=== PATIENT | female | born 1955 | race Caucasian/White ===

== ENCOUNTER 2023-09-18 11:11 | Day surgery (SDC) | payer OTHER ==
[2023-09-16 15:50] LABS: Absolute Lymphocytes (CBC) 2.2 K/uL (0.7-4.9); Hematocrit 39.2 % (36.0-45.0); Lymphocytes % 27.7 % (15.3-44.8); MCV 89.4 fL (80-100); MPV 7.7 fL (7.6-11.3); Platelets 250 thou/uL (152-406); RBC Red Blood Cell Count 4.38 M/uL (3.86-4.86)
[2023-09-16 16:05] LABS: ALT/SGPT 43 U/L (13-56); AST/SGOT 19 U/L (15-37); Albumin 3.8 g/dL (3.4-5.0); Alkaline Phosphatase 90 U/L (45-117); BUN Blood Urea Nitrogen 12 mg/dL (7-18); Bicarbonate 26 mEq/L (21-32); Bilirubin Total 0.3 mg/dL (0.2-1.0); Glomerular Filtration Rate 57 ml/min (=/>90); Glucose Level 283 mg/dL (74-106); Lipase 170 U/L (13-75); Protein, Total 7.5 g/dL (6.4-8.2); Sodium Level 135 mEq/L (136-145)
[2023-09-16 16:06] LABS: Bilirubin Direct < 0.1 mg/dL (0-0.2); Bilirubin Indirect, Calculated ND mg/dL (0.2-0.8)
--- NOTE | 2023-09-16 19:39 | RAD REPORT ---
EXAM DESCRIPTION: RAD - Chest Pa And Lat (2 Views) - 09/16/2023 3:36 pm CLINICAL HISTORY: Pre op pending cholecystectomy. Hypertension COMPARISON: CHEST PA AND LAT 2 VIEW dated 10/20/2013 TECHNIQUE: PA and lateral views of the chest were obtained. FINDINGS: The lungs are clear. Heart size is normal and central vasculature is within normal limits. No pleural effusion or pneumothorax seen. No acute bony finding noted. IMPRESSION: No acute cardiopulmonary process.
--- NOTE | 2023-09-17 13:38 | EKG ---
Test Date: 2023-09-16 Test Time: 15:16:00 Ceramics Teacher: KATHIA MEASUREMENT RESULTS: Intervals: Rate: 79 VT: 168 QRSD: 86 QT: 358 QTc: 410 [place]: P: 51 VT: 168 QRS: 28 T: 121 INTERPRETIVE STATEMENTS: Normal sinus rhythm Nonspecific T wave abnormality Abnormal ECG Compared to ECG 10/20/2013 10:39:54 Sinus bradycardia no longer present Possible ischemia no longer present Left ventricular hypertrophy no longer present T-wave abnormality still present Electronically Signed On 09-17-23 13:36:48 CDT by Valente Pham
[2023-09-18] MEDS ORDERED: LIDOCAINE 2% MPF 5 ML VIAL ONE (11:31)
[2023-09-18] MEDS ORDERED: FENTANYL CITR 100 MCG/2 ML ONE ×2 (11:31→13:46)
[2023-09-18] MEDS ORDERED: ROCURONIUM 50 MG/5 ML VIAL IV ONE (11:31)
[2023-09-18] MEDS ORDERED: propofoL 200 MG/20 ML VIAL IV ONE (11:31)
[2023-09-18] MEDS ORDERED: ONDANSETRON 4 MG/2 ML VIAL ONE (11:31)
[2023-09-18] MEDS ORDERED: NA CHLORIDE 0.9% 1,000 ML ONE (11:42)
[2023-09-18] MEDS ORDERED: CEFOXITIN SODIUM 1 GM/VIAL ONE (11:56)
[2023-09-18] MEDS ORDERED: GLYCOPYRROLATE 0.2 MG/ML SYR ONE (13:56)
--- NOTE | 2023-09-18 14:01 | P.BOP ---
Preoperative diagnosis: acute cholecystitis, symptomatic cholelithiasis, pancreatitis Postoperative diagnosis: same Primary procedure: Laparoscopic cholecystectomy Estimated blood loss: <10cc Specimen: gb Findings: as above Anesthesia: General Complications: None Transferred to: Recovery Room Condition: Good
[2023-09-18] MEDS ORDERED: NEOSTIGMINE 1 MG/ML -10 ML VIAL ONE (14:04)
[2023-09-18] MEDS ORDERED: PROMETHAZINE INJ 25 MG/ML AMP ONE (14:40)
[2023-09-18 15:15] VITALS: BP 153/67; TEMP 96.9; O2SAT 94
--- NOTE | 2023-09-18 22:06 | OP ---
Surgeon: Cl Huerta MD Preoperative Diagnoses: Acute cholecystitis, symptomatic cholelithiasis, pancreatitis. Postoperative Diagnoses: Acute cholecystitis, symptomatic cholelithiasis, pancreatitis. Procedure: Laparoscopic cholecystectomy. Estimated Blood Loss: Less than 10 mL. Specimen: Gallbladder. Anesthesia: General plus local. Complications: None. Indication: The patient comes to us with above diagnoses. Fully explained the benefits, alternative s, and risks of laparoscopic possible open cholecystectomy, which include, but not limited to infecti on, bleeding, damage to adjacent structures, anesthesia complication, choledocholithiasis, bile leak, pancreatitis. She also understands this may not relieve the symptoms. She might need more than one surgical intervention. She understood, signed a consent. She was also advised to follow up with he r pulmonologist. She initially went there for pancreatitis. Description Of Procedure: The patient brought to the operating room, placed in supine position. Ane sthesia was achieved without complication. Abdominal area was prepped and draped in sterile fashion. Marcaine 0.5% injection for local anesthetic followed by sharp incision of the skin in the supraumb ilical region. The incision was carried down to fascia, which was opened under direct vision. Perit oneum was encountered, opened under direct vision. Vicryl #1 placed inside the fascia. Bryan troca r was carefully introduced. Pneumoperitoneum was obtained. I placed 3 more trocars, 5 mm each one o f them, 1 in epigastric area, 2 in the right upper quadrant, using the same technique which consisted of local anesthetic, sharp incision of the skin, and introduction of the trocars under direct vision . This allowed me to put a grasper in the fundus of the gallbladder, another grasper in the infundib ulum, retracting the gallbladder in the inferolateral fashion, exposing the triangle of Calot, and ob taining critical view. The cystic duct and cystic artery were clearly isolated, freed circumferentia lly and a connection between those and the gallbladder was clearly identified. I proceeded to ligate those by using at least 3 clips proximal, 1 clip distal, ligation in the middle. Same was done with the cystic artery. No bile leak, no bleeding. The gallbladder was removed from liver using Bovie c auterizer and removed from abdominal cavity using EndoCatch through an umbilical incision. The area was inspected once again. No bile leak. No bleeding. At that moment, I proceeded to remove the tro cars under direct vision, deflated pneumoperitoneum, closed the fascia with #1 Vicryl, irrigated subc utaneous tissue, closed that with 3-0 chromic and skin with casey. Sponge count, instrument counts correct. The patient tolerated the procedure well. The patient sent to recovery in stable conditio n. Diagnoses: Acute cholecystitis, symptomatic cholelithiasis, pancreatitis Procedure: Laparoscopic cholecystectomy. Disposition: Home. Activity: As tolerated, no heavy lifting. Follow up in my office in 1 week, call for appointment [phone]. Keep area dry for 48 hours, then ma y shower. Keep staple intact. May cover with triple antibiotic. GLORIA/STEPHANY Voice ID: [id number] Report ID: [id number]
== END 2023-09-18 15:38 | disposition home or self-care (01) ==
LOC: OR 11:11
PROVIDERS: ATTEND Surgery
PROC: 0FT44ZZ Resection of Gallbladder, Percutaneous Endoscopic Approach (ICD-10-PCS; principal; 2023-09-18 12:30)
DX: K80.10 Calculus of gallbladder with chronic cholecystitis without obstruction (principal); K85.90 Acute pancreatitis without necrosis or infection, unspecified
CPT/HCPCS: 93005; 85025; 80048; 36415; 82947 ×2; 80076; 88304; 83690; 71046; 47562; J2550; J2704; J2710; J2001; J3010 ×2; J0694; J2405; J7030